=== PATIENT | male | born 1975 | race Hispanic/Latino ===

== ENCOUNTER 2020-05-21 08:12 | Day surgery (SDC) | payer OTHER ==
[2020-05-16 11:11] LABS: BASOPHILS % (AUTO) 0.4 % (0.0-5.0); EOSINOPHILS % (AUTO) 0.4 % (0.0-8.0); HEMATOCRIT 46.4 % (42-54); LYMPHOCYTES % (AUTO) 25.6 % (21.0-51.0); MEAN CORPUSCULAR HEMOGLOBIN 28.3 pg (27.0-33.0); MEAN CORPUSCULAR HGB CONC 34.1 g/dL (32.0-36.0); MONOCYTES % (AUTO) 6.7 % (3.0-13.0); NEUTROPHILS % (AUTO) 65.2 % (40.0-77.0); PLATELET COUNT (AUTO) 202 K/uL (130-400); RED BLOOD CELL COUNT(AUTO) 5.59 MIL/uL (4.50-6.20); RED CELL DISTRIBUTION WIDTH 11.9 % (11.0-15.5); WHITE BLOOD COUNT (AUTO) 4.8 K/uL (4.8-10.8)
[2020-05-16 11:17] LABS: POTASSIUM 4.5 mmol/L (3.5-5.1)
[2020-05-16 14:55] VITALS: BP 122/74
[~2020-05-21] VITALS: Ht 177.8 cm; Wt 87.8 kg
[2020-05-21] VITALS (18 sets, daily range): BP systolic 102–116; BP diastolic 62–75
[2020-05-21] MEDS: CEFAZOLIN SODIUM 1 GM VIAL IVP ONE ×2 (08:00→14:23)
[2020-05-21] MEDS ORDERED: 0.9%NACL 10ML VIAL ONE ×2 (10:23→15:19)
[2020-05-21] MEDS ORDERED: CEFAZOLIN SODIUM 1 GM VIAL ONE (10:23)
[2020-05-21] MEDS ORDERED: LACTATED RINGERS 1000ML 1,000 ML IV ONE (10:23)
[2020-05-21] MEDS ORDERED: MIDAZOLAM HCL 1 MG/ML 2ML VIAL ONE (12:34)
[2020-05-21] MEDS ORDERED: EPINEPHRINE 1 MG/ML 30ML VIAL IJ ONE (12:39)
[2020-05-21] MEDS ORDERED: MIDAZOLAM HCL 1 MG/ML 2ML VIAL IVPB SCH (13:00)
[2020-05-21] MEDS ORDERED: PROPOFOL 10 MG/ML 20ML VIAL IV ONE (13:17)
[2020-05-21] MEDS ORDERED: ROCURONIUM 10MG/1ML SYR 10 MG/ML ML ONE ×2 (13:17→15:33)
[2020-05-21] MEDS ORDERED: LIDOCAINE PF 100MG/5ML (2%) SYRINGE 5ML ONE (13:17)
[2020-05-21] MEDS ORDERED: FENTANYL CITRATE PF 50 MCG/1 ML 2ML VIAL ONE ×2 (13:17→15:43)
[2020-05-21] MEDS ORDERED: SUCCINYLCHOLINE CHLORIDE 20 MG/ML 10 ML VIAL ONE (13:17)
[2020-05-21] MEDS ORDERED: ROPIVACAINE 0.5% 5MG/ML 30ML IJ ONE (13:51)
[2020-05-21] MEDS ORDERED: GLYCOPYRROLATE 1 MG/5 ML SYRINGE ONE (14:48)
[2020-05-21] MEDS ORDERED: PHENYLEPHRINE HCL 10 MG/ML 1ML VIAL IV ONE (15:19)
[2020-05-21] MEDS ORDERED: ONDANSETRON 4MG INJ ONE (15:43)
[2020-05-21] MEDS ORDERED: KETOROLAC 30MG VIAL (30MG/ML) ONE (15:43)
[2020-05-21] MEDS ORDERED: NEOSTIGMINE 5MG/5ML SYR IV ONE (15:45)
[2020-05-21] MEDS ORDERED: HYDR-4060 PO (16:01)
[2020-05-21] MEDS ORDERED: CEPH500B PO (16:01)
[2020-05-21] MEDS ORDERED: IBUP-2070 PO (16:01)
== END 2020-05-21 18:25 | disposition home or self-care (01) ==
LOC: DAH 08:12
PROVIDERS: ATTEND Orthopaedic Surgery
DX: M75.32 Calcific tendinitis of left shoulder (principal); M75.52 Bursitis of left shoulder; Z20.828 Contact with and (suspected) exposure to other viral communicable diseases; M25.512 Pain in left shoulder; G89.29 Other chronic pain; Z80.9 Family history of malignant neoplasm, unspecified
CPT/HCPCS: 29822; 36415; 64415; 76942; 80048; 85025; A4215; A4216; A4221; A4222; A4223 ×2; A4565; A4600; A4649 ×2; A4663; A4930; A6204; C9803; G0168; J0171; J0330; J0690; J1885; J2001; J2250; J2370; J2405; J2704; J2710; J2795; J3010 ×2; J3490; J7030; J7120 ×2; U0003